=== PATIENT | male | born 2000 | race Caucasian/White ===

== ENCOUNTER 2020-08-06 14:46 | Inpatient (IN) | payer OTHER ==
[~2020-08-06] VITALS: Ht 180.3 cm; Wt 66.7 kg
[2020-08-06 15:49] LABS: HEMATOCRIT 48.4 % (42.0-52.0); HEMOGLOBIN 16.4 g/dl (13.5-17.5); MEAN CORPUSCULAR HEMOGLOBIN 29.8 pg (27.0-33.0); MEAN CORPUSCULAR HGB CONC 33.9 g/dl (32.0-36.5); PLATELET COUNT, AUTOMATED 276 10^3/uL (150-450); WHITE BLOOD COUNT 7.1 10^3/uL (4.0-10.0)
[2020-08-06 16:37] LABS: ALBUMIN 4.3 GM/DL (3.2-5.2); ALT/SGPT 140 U/L (12-78); BILIRUBIN,DIRECT 0.3 MG/DL (0.0-0.2); BILIRUBIN,TOTAL 1.4 MG/DL (0.2-1.0); BLOOD UREA NITROGEN 11 MG/DL (7-18); CALCIUM LEVEL 9.2 MG/DL (8.5-10.1); CARBON DIOXIDE LEVEL 30 MEQ/L (21-32); CHLORIDE LEVEL 104 MEQ/L (98-107); CREATININE FOR GFR 0.92 MG/DL (0.70-1.30); ETHYL ALCOHOL (ETHANOL) < 0.003 % (0.000-0.010); GLUCOSE, FASTING 91 MG/DL (70-100); POTASSIUM SERUM 4.1 MEQ/L (3.5-5.1); SODIUM LEVEL 139 MEQ/L (136-145); THYROID STIMULATING HORMONE 0.431 uIU/ML (0.463-3.98); TOTAL PROTEIN 7.3 GM/DL (6.4-8.2)
[2020-08-06 16:38] LABS: ACETAMINOPHEN LEVEL < 2.0 UG/ML (10.0-30.0); SALICYLATE LEVEL < 1.7 MG/DL (5.0-30.0)
[2020-08-06 17:39] LABS: AMPHETAMINES LEVEL URINE NEGATIVE (NEGATIVE); BARBITURATES URINE NEGATIVE (NEGATIVE); BENZODIAZEPINES URINE NEGATIVE (NEGATIVE); CANNABINOIDS URINE NEGATIVE (NEGATIVE); COCAINE METABOLITE URINE NEGATIVE (NEGATIVE); METHADONE URINE NEGATIVE (NEGATIVE); OPIATES URINE NEGATIVE (NEGATIVE); PHENCYCLIDINE URINE NEGATIVE (NEGATIVE)
[2020-08-06 18:34] LABS: HEPATITIS B SURFACE ANTIGEN NEGATIVE (NEGATIVE)
[2020-08-06] MEDS ORDERED: traZODone 50 MG TAB PO PRN (19:00)
[2020-08-06] MEDS ORDERED: MOM 30ML SUSPENSION UDC PO PRN (19:00)
[2020-08-06] MEDS ORDERED: MAALOX 30 ML SUSP *UDC PO PRN (19:00)
[2020-08-06] MEDS ORDERED: ACETAMINOPHEN TAB 650MG DOSE (2X325MG) PO PRN (19:00)
[2020-08-06 19:01] LABS: HEPATITIS B CORE ANTIBODY IGM NEGATIVE (NEGATIVE)
[2020-08-06 19:03] LABS: HEPATITIS A ANTIBODY IGM NEGATIVE (NEGATIVE)
[2020-08-06 23:49] VITALS: BP 127/73
[2020-08-07 06:49] VITALS: BP 111/66
--- NOTE | 2020-08-07 10:14 | MHHPEPDOC ---
[facility] History & Physical History and Physical DATE OF ADMISSION: Aug 06, 2020 at 18:56 HPI: Emmanuel presents today for an evaluation. The patient has met with today. 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 He reports he feels invalidated in his current role in the and became increasingly despondent and upset. Hes somewhat vague about symptoms but reports feeling stressed and feeling worse about being in the to the point where he has suicidal thoughts. He presented and was laney tted, screened for bipolar, psychotic, and PTSD symptoms at this time. MEDICAL HISTORY: Has no history of inpatient psych admissions, suicides, or diagnoses. FAMILY HISTORY: Denies any significant family history. SOCIAL HISTORY - LIVING SITUATION: Currently, lives in the [facility]. SOCIAL HISTORY - SUBSTANCE USE: Denies any substance abuse, tobacco, alcohol, marijuana. Objective Behavior: Pleasant. Poor eye contact. Engaged. Affect: Mildly dysthymic. Appropriate to context. Constricted. Thought Form: Linear and goal directed. Thought Content: No thoughts of self harm. No evidence of suicidal ideation. No evidence of delusions. No evidence of aggressive or homicidal ideation. Judgement: Poor. Insight: Poor. Assessment F43.20 Adjustment disorder, unspecified Plan Observe patient until appears in more of a state of adjustment related to the . Will recommend patient works on coping skills. Treatment priorities are 1) risk for suicide and 2) ineffective coping. Estimated length of stay is 2-5 days. Vital Signs Vital Signs Date Time Temp Pulse Resp B/P (MAP) Pulse Ox O2 Delivery O2 Flow Rate FiO2 08/07/20 06:49 98.4 89 14 111/66 (81) 96 Room Air Laboratory Data 24H Labs Laboratory Tests 2 08/06/20 15:39: Nucleated Red Blood Cells % (auto) 0.0, Anion Gap 5L, Calcium Level 9.2, Total Bilirubin 1.4H, Direct Bilirubin 0.3H, Aspartate Amino Transf (AST/SGOT) 161H, Alanine Aminotransferase (ALT/SGPT) 140H, Alkaline Phosphatase 62, Total Protein 7.3, Albumin 4.3, Albumin/Globulin Ratio 1.4, Thyroid Stimulating Hormone (TSH) 0.431L, Salicylates Level < 1.7L, Acetaminophen Level < 2.0L, Ethyl Alcohol Level < 0.003, Hepatitis A IgM Antibody NEGATIVE, Hepatitis B Surface Antigen NEGATIVE, Hepatitis B Core IgM Antibody NEGATIVE, Hepatitis C Antibody Index 0.0 08/06/20 16:50: Urine Opiates Screen NEGATIVE, Urine Methadone Screen NEGATIVE, Urine Barbiturates Screen NEGATIVE, Urine Phencyclidine Screen NEGATIVE, Urine Amphetamines Screen NEGATIVE, Urine Benzodiazepines Screen NEGATIVE, Urine Cocaine Metabolite Screen NEGATIVE, Urine Cannabinoids Screen NEGATIVE 08/06/20 19:29: Coronavirus (COVID-19)(PCR) NEGATIVE CBC/BMP Laboratory Tests 08/06/20 15:39 Medications No Active Prescriptions or Reported Meds Allergies Coded Allergies: No Known Allergies (Verified Allergy, Unknown, 08/06/20) PAPA CAVAZOS DO Aug 07, 2020 10:14
--- NOTE | 2020-08-07 15:50 | HPEPDOC ---
[facility] Medical History & Physical Date of Admission Aug 07, 2020 Date of Service: Aug 07, 2020 Attending Physician: NERY HANDLEY MD History and Physical CHIEF COMPLAINT: Suicidal ideation HISTORY OF PRESENT ILLNESS: Mr. Rivera is a pleasant 20-year-old male with no past medical history who was admitted to the behavioral health unit for suicidal ideation and possibly homicidal ideation. He experienced on the night of 08/06/2020. 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 He states he's been experiencing low mood, anxiety and suicidal ideation for the past 1-2 weeks. 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 He was afraid to be by himself out of fear of harming himself or somebody else. He does report taking Tylenol for headache, but states only took 2 tablets. At this time. He has no physical symptoms, he does not endorse chest pain, chest breath, palpitations, headache, nausea, vomiting, diarrhea or subjective chills. Hospitalist service was consulted for medical comanagement. Lab review. Noted transaminitis. AST 161, ALT 148. Alkaline phosphatase 62. Direct bilirubin 0.3, total bilirubin 1.4. Patient denies history of alcohol abuse. PAST MEDICAL HISTORY: Depression, anxiety, suspected PAST SURGICAL HISTORY: Patient denies any past surgical history SOCIAL HISTORY: Patient denies smoking Patient denies etoh use Patient denies illicit drug use Patient is active duty FAMILY HISTORY: Fatherhypertension. Motheranxiety and depression ALLERGIES: Please see below. REVIEW OF SYSTEMS: CONSTITUTIONAL: patient denies fevers, chills HEENT: patient denies blurred vision, loss of vision, headache,. CARDIOVASCULAR: patient denies chest pain, palpitations. RESPIRATORY: patient denies shortness of breath, cough, hemoptysis. GASTROINTESTINAL: patient denies abdominal pain, n/v/d, blood in stool. GENITOURINARY: patient denies dysuria, discharge. SKIN: patient denies rashes. MUSCULOSKELETAL: patient denies joint pain, neck pain. NEUROLOGICAL: patient denies focal weakness, numbness, seizures. PSYCHIATRIC: Patient reports SI, HI, however, does not have active suicidal thoughts at this time ENDOCRINE: patient denies polyuria, heat intolerance, cold intolerance. HEMATOLOGIC/LYMPHATIC: patient denies easy bruising. HOME MEDICATIONS: Please see below. PHYSICAL EXAMINATION: VITAL SIGNS: please see below General: NAD, comfortable HEENT: PERRLA, EOMI, sclerae clear Neck: supple, normal ROM, no JVD Respiratory: lungs CTAB, no wheeze, no rales, no crackles CVS: RRR, normal S1, S2, no murmurs Abdo: soft, no masses, no hepatosplenomegaly, BS+, no rebound tenderness Extremities: no edema, pulses 2+ MSK: no joint deformities, normal ROM Neuro: no focal neuro deficits, moving all 4 extremities, CN2-12 intact. Strength 5/5 in all 4 extremities. No nystagmus. Psych: calm, cooperative, AAO x 3 LABORATORY DATA: See below. MICROBIOLOGY: Please see below. ASSESSMENT: 20-year-old male in active duty admitted to [facility] for suicidal and homicidal ideation. Hospitalist service consulted for medical comanagement. . PLAN: Suicidal/homicidal ideation: Per psychiatry. Transaminitis/elevated bilirubin: Check hepatitis panel. Check lipid panel. Repeat CMP. Repeat bilirubin. Order liver ultrasound. Low TSH: Check free T4. Referring involving us in the care of this patient, please reconsult as needed. Vital Signs Vital Signs Date Time Temp Pulse Resp B/P (MAP) Pulse Ox O2 Delivery O2 Flow Rate FiO2 08/07/20 06:49 98.4 89 14 111/66 (81) 96 Room Air Laboratory Data Labs 24H Laboratory Tests 2 08/06/20 15:39: Nucleated Red Blood Cells % (auto) 0.0, Anion Gap 5L, Calcium Level 9.2, Total Bilirubin 1.4H, Direct Bilirubin 0.3H, Aspartate Amino Transf (AST/SGOT) 161H, Alanine Aminotransferase (ALT/SGPT) 140H, Alkaline Phosphatase 62, Total Protein 7.3, Albumin 4.3, Albumin/Globulin Ratio 1.4, Thyroid Stimulating Hormone (TSH) 0.431L, Salicylates Level < 1.7L, Acetaminophen Level < 2.0L, Ethyl Alcohol Level < 0.003, Hepatitis A IgM Antibody NEGATIVE, Hepatitis B Surface Antigen NEGATIVE, Hepatitis B Core IgM Antibody NEGATIVE, Hepatitis C Antibody Index 0.0 08/06/20 16:50: Urine Opiates Screen NEGATIVE, Urine Methadone Screen NEGATIVE, Urine Barbiturates Screen NEGATIVE, Urine Phencyclidine Screen NEGATIVE, Urine Amphetamines Screen NEGATIVE, Urine Benzodiazepines Screen NEGATIVE, Urine Cocaine Metabolite Screen NEGATIVE, Urine Cannabinoids Screen NEGATIVE 08/06/20 19:29: Coronavirus (COVID-19)(PCR) NEGATIVE CBC/BMP Laboratory Tests 08/06/20 15:39 Home Medications No Active Prescriptions or Reported Meds Allergies Coded Allergies: No Known Allergies (Verified Allergy, Unknown, 08/06/20) A-FIB/CHADSVASC A-FIB History Current/History of A-Fib/PAF?: No Current PO Anticoag Therapy: No NERY HANDLEY MD Aug 07, 2020 15:50
[2020-08-07 16:09] VITALS: BP 118/62
[2020-08-07 16:38] LABS: BASO # 0.1 10^3/uL (0.0-0.2); BASO % 0.9 % (0.0-1.0); EOS # 0.5 10^3/uL (0.0-0.5); EOS % 6.1 % (0.0-3.0); HEMATOCRIT 50.9 % (42.0-52.0); HEMOGLOBIN 17.2 g/dl (13.5-17.5); LYMPH # 2.1 10^3/uL (1.5-5.0); LYMPH % 27.3 % (24.0-44.0); MEAN CORPUSCULAR HGB CONC 33.8 g/dl (32.0-36.5); MEAN CORPUSCULAR VOLUME 88.7 fl (80.0-96.0); MONO # 0.6 10^3/uL (0.0-0.8); MONO % 7.9 % (0.0-5.0); NEUTROPHILS # 4.4 10^3/uL (1.5-8.5); NEUTROPHILS % 57.4 % (36.0-66.0); PLATELET COUNT, AUTOMATED 287 10^3/uL (150-450); RED BLOOD COUNT 5.74 10^6/uL (4.30-6.10); WHITE BLOOD COUNT 7.6 10^3/uL (4.0-10.0)
[2020-08-07 17:14] LABS: ALBUMIN 4.4 GM/DL (3.2-5.2); ALT/SGPT 124 U/L (12-78); BILIRUBIN,TOTAL 0.9 MG/DL (0.2-1.0); BLOOD UREA NITROGEN 12 MG/DL (7-18); CALCIUM LEVEL 9.4 MG/DL (8.5-10.1); CARBON DIOXIDE LEVEL 31 MEQ/L (21-32); CHLORIDE LEVEL 104 MEQ/L (98-107); CHOLESTEROL LEVEL 151 MG/DL (<200); CHOLESTEROL RISK RATIO 4.081 (<5); CREATININE FOR GFR 0.85 MG/DL (0.70-1.30); FREE T4 1.18 NG/DL (0.78-1.33); GLUCOSE, FASTING 87 MG/DL (70-100); HDL CHOLESTEROL 37 MG/DL (>40); LDL CHOLESTEROL 82 MG/DL (<100); NON-HDL-C 114 MG/DL; POTASSIUM SERUM 4.3 MEQ/L (3.5-5.1); SODIUM LEVEL 142 MEQ/L (136-145); TOTAL PROTEIN 7.5 GM/DL (6.4-8.2); TRIGLYCERIDES LEVEL 162 MG/DL (<150)
[2020-08-07 18:01] LABS: HEPATITIS B CORE ANTIBODY IGM NEGATIVE (NEGATIVE)
[2020-08-07 18:02] LABS: HEPATITIS A ANTIBODY IGM NEGATIVE (NEGATIVE)
--- NOTE | 2020-08-07 20:04 | REP ---
INDICATION: elevated liver enzymes. FINDINGS: Multiple ultrasonographic images of the liver show the hepatic parenchymal echo texture to appear unremarkable. There are no focal masses. There is no intrahepatic ductal dilatation. The common bile duct measures approximately 3.2 mm in its greatest transverse dimension. Multiple ultrasonographic images of the gallbladder show no focal or diffuse gallbladder wall thickening. The gallbladder, however, is contracted. There are no echogenic foci within the gallbladder lumen, which casts acoustic shadows. There is no pericholecystic edema. Images of the pancreatic region show no gross abnormality. The imaged portion of the right kidney is unremarkable. IMPRESSION: Unremarkable right upper quadrant ultrasound. Accredited by the [employer] in General Ultrasound. <Electronically signed by Asael Miranda > 08/07/202000
[2020-08-07 20:57] LABS: HEPATITIS B SURFACE ANTIGEN NEGATIVE (NEGATIVE)
[2020-08-08 06:29] VITALS: BP 125/54
--- NOTE | 2020-08-08 15:28 | MHIPNPDOC ---
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 Pt describesthe SI and "sitting there thinking and they creep in" when having these thoughts. Pt states there have been times he will walk to the window and stareout, has even opened the window before but stopped due to his relationship with his mother. He also endorsed a plan of "disappearing in the rosales" he reports there are a lot of rosales around him and he would go into there "and never come out" Pt then goes on to describe where in the neck area would be best to "stab" himself. Pt reports that he lost 2 of his brothers in childhood via MVC and seems pretty flat when describing the tragic details of these events. Pt states that he has no Hx of these types of thoughts but they have been "pretty intense" this past week. Denies HI and AH/VH" VITAL SIGNS: See below. NEW TEST RESULTS: See below CURRENT MEDICATIONS: See below. MENTAL STATUS EXAMINATION: Patient is a 20 year old male, who is alert, cooperative, dressed in hospital clothes . Speech: Is normal in r/t/v, spontaneous and fluent Language skills are intact. Thought processes including: linear an coherent. Thought content: he has depressed thoughts, anxious thoughts, has angry thoughts, denies SI/HI at this time but he had them when he was at [employer]. Abstract reasoning, and computation: good. Description of associations: good, not loose Description of abnormal or psychotic thoughts: denies TAV hallucinations, denies thought delusions, denies SI/HI. Judgment: Improving Insight: Fair Orientation: x 3. Recent and remote memory: intact. Attention span and concentration: he is able to focus. Language: no abnormalities observed. Fund of knowledge: average Mood: sad/depressed. Affect: congruent with mood, sad. DIAGNOSES: 1. Adjustment disorder, unspecified 2. R/O Unspecified trauma and stressor disorder 3. R/O Generalized Anxiety Disorder. ASSESSMENT: The patient feels guilty because he was not with his brother when this one in a MVA 2 years ago. h has survivor's guilt. He feels guilty because he could do nothing to help his family mitigate the pain when he lost his 15 year old brother who got run over by his mother as she was backing up from the [facility]. He was 5 years old at the time. He has nightmares about those traumatic events and he can't remember a lot of things that he shared with is brother ( who in the MVA). He should continue therapy once he is discharged to work on these problems. MANAGEMENT PLAN: As pr Dr. Hernandez TIME SPENT: 20minutes. Vital Signs Vital Signs Date Time Temp Pulse Resp B/P (MAP) Pulse Ox O2 Delivery O2 Flow Rate FiO2 08/08/20 06:29 97.8 70 18 125/54 (77) 96 Room Air Laboratory Data 24H Labs Laboratory Tests 2 08/07/20 16:05: Immature Granulocyte % (Auto) 0.4, Neutrophils (%) (Auto) 57.4, Lymphocytes (%) (Auto) 27.3, Monocytes (%) (Auto) 7.9H, Eosinophils (%) (Auto) 6.1H, Basophils (%) (Auto) 0.9, Neutrophils # (Auto) 4.4, Lymphocytes # (Auto) 2.1, Monocytes # (Auto) 0.6, Eosinophils # (Auto) 0.5, Basophils # (Auto) 0.1, Nucleated Red Blood Cells % (auto) 0.0, Anion Gap 7L, Calcium Level 9.4, Total Bilirubin 0.9, Aspartate Amino Transf (AST/SGOT) 92H, Alanine Aminotransferase (ALT/SGPT) 124H, Alkaline Phosphatase 76, Total Protein 7.5, Albumin 4.4, Albumin/Globulin Ratio 1.4, Triglycerides Level 162H, Total Cholesterol 151, LDL Cholesterol 82, Non- HDL Cholesterol (LDL + VLDL) 114, Total HDL Cholesterol 37L, Cholesterol/HDL Ratio 4.081, Free Thyroxine 1.18, Hepatitis A IgM Antibody NEGATIVE, Hepatitis B Surface Antigen NEGATIVE, Hepatitis B Core IgM Antibody NEGATIVE CBC/BMP Laboratory Tests 08/07/20 16:05 Current Medications Current Medications Medications (Trade) Dose Ordered Sig/Rojas Route PRN Reason Start Time Stop Time Status Last Admin Dose Admin Acetaminophen (Tylenol Tab) 650 mg Q6HP PRN PO HEADACHE or DISCOMFORT 08/06/20 19:00 11/13/20 01:34 Al Hydrox/Mg Hydrox/Simethicone (Mylanta) 30 ml Q4HP PRN PO HEARTBURN/INDIGESTION 08/06/20 19:00 Home Med (Med Rec Complete!) ASDIRECTED XX 08/06/20 19:00 08/06/20 18:55 DC Magnesium Hydroxide (Milk Of Magnesia) 30 ml DAILYPRN PRN PO CONSTIPATION 08/06/20 19:00 Trazodone HCl (Desyrel) 50 mg QHSP PRN PO INSOMNIA 08/06/20 19:00 Allergies Coded Allergies: No Known Allergies (Verified Allergy, Unknown, 08/06/20) RYAN GODFREY MD Aug 08, 2020 15:17
[2020-08-08 16:22] VITALS: BP 114/60
[2020-08-09 06:09] VITALS: BP 118/57
--- NOTE | 2020-08-09 12:54 | MHIPNPDOC ---
[facility] Progress Note Progress Note DATE OF SERVICE: 08/09/20 HISTORY: As per ED report: "Pt states "I have thoughts of hurting myself and I don't trust myself to be alone" Pt reports many times throughout the interview that he does not like the way his squad treats him and this causes much of his thoughts and feelings. Pt describesthe SI and "sitting there thinking and they creep in" when having these thoughts. Pt states there have been times he will walk to the window and stareout, has even opened the window before but stopped due to his relationship with his mother. He also endorsed a plan of "disappearing in the rosales" he reports there are a lot of rosales around him and he would go into there "and never come out" Pt then goes on to describe where in the neck area would be best to "stab" himself. Pt reports that he lost 2 of his brothers in childhood via MVC and seems pretty flat when describing the tragic details of these events. Pt states that he has no Hx of these types of thoughts but they have been "pretty intense" this past week. Denies HI and AH/VH" VITAL SIGNS: See below. NEW TEST RESULTS: See below CURRENT MEDICATIONS: See below. MENTAL STATUS EXAMINATION: Patient is a 20 year old male, who is alert, cooperative, dressed in hospital clothes . Speech: Is normal in r/t/v, spontaneous and fluent Language skills are intact. Thought processes including: linear an coherent. Thought content: he has sad thoughts regarding his brother's , very little anxious thoughts today. He denies SI/HI at this time but he had them when he was at . Abstract reasoning, and computation: good. Description of associations: good, not loose Description of abnormal or psychotic thoughts: denies TAV hallucinations, denies thought delusions, denies SI/HI. Judgment: Improving Insight: Fair Orientation: x 3. Recent and remote memory: intact. Attention span and concentration: he is able to focus. Language: no abnormalities observed. Fund of knowledge: average Mood: " if eel OK today". Affect: congruent with mood, sad. DIAGNOSES: 1. Adjustment disorder, unspecified 2. R/O Unspecified trauma and stressor disorder 3. R/O Generalized Anxiety Disorder. ASSESSMENT: He says his depression is a 2/10, he says he doesn't feel sad. he says he has not felt anxious lately. MANAGEMENT PLAN: As pr Dr. Hernandez TIME SPENT: 20minutes. Vital Signs Vital Signs Date Time Temp Pulse Resp B/P (MAP) Pulse Ox O2 Delivery O2 Flow Rate FiO2 08/09/20 06:09 98.3 56 18 118/57 (77) 97 Room Air Current Medications Current Medications Medications (Trade) Dose Ordered Sig/Rojas Route PRN Reason Start Time Stop Time Status Last Admin Dose Admin Acetaminophen (Tylenol Tab) 650 mg Q6HP PRN PO HEADACHE or DISCOMFORT 08/06/20 19:00 08/07/20 01:34 Al Hydrox/Mg Hydrox/Simethicone (Mylanta) 30 ml Q4HP PRN PO HEARTBURN/INDIGESTION 08/06/20 19:00 Home Med (Med Rec Complete!) ASDIRECTED XX 08/06/20 19:00 08/06/20 18:55 DC Magnesium Hydroxide (Milk Of Magnesia) 30 ml DAILYPRN PRN PO CONSTIPATION 08/06/20 19:00 Trazodone HCl (Desyrel) 50 mg QHSP PRN PO INSOMNIA 08/06/20 19:00 Allergies Coded Allergies: No Known Allergies (Verified Allergy, Unknown, 08/06/20) RYAN GODFREY MD Aug 09, 2020 12:54
[2020-08-09 16:25] VITALS: BP 130/73
[2020-08-10 06:28] VITALS: BP 107/53
--- NOTE | 2020-08-10 11:10 | MHIPNPDOC ---
[facility] Progress Note Progress Note DATE OF SERVICE: 08/10/20 HISTORY: . VITAL SIGNS: See below. NEW TEST RESULTS: . CURRENT MEDICATIONS: See below. MENTAL STATUS EXAMINATION: Patient is a -year old male, who is . Speech: Is . Language skills are . Thought processes including: . Thought content: . Abstract reasoning, and computation: . Description of assoc iations: . Description of abnormal or psychotic thoughts: . Judgment: . Insight: [very limited, good, fair. poor]. Orientation: . Recent and remote memory: . Attention span and concentration: . Language: . Fund of knowledge: . Mood: . Affect: . DIAGNOSES: 1. . 2. . 3. . ASSESSMENT: MANAGEMENT PLAN: . TIME SPENT: minutes. Vital Signs Vital Signs Date Time Temp Pulse Resp B/P (MAP) Pulse Ox O2 Delivery O2 Flow Rate FiO2 08/10/20 06:28 98.5 83 12 107/53 (71) Room Air 08/09/20 06:09 97 Current Medications Current Medications Medications (Trade) Dose Ordered Sig/Rojas Route PRN Reason Start Time Stop Time Status Last Admin Dose Admin Acetaminophen (Tylenol Tab) 650 mg Q6HP PRN PO HEADACHE or DISCOMFORT 08/06/20 19:00 08/07/20 01:34 Al Hydrox/Mg Hydrox/Simethicone (Mylanta) 30 ml Q4HP PRN PO HEARTBURN/INDIGESTION 08/06/20 19:00 Home Med (Med Rec Complete!) ASDIRECTED XX 08/06/20 19:00 08/06/20 18:55 DC Magnesium Hydroxide (Milk Of Magnesia) 30 ml DAILYPRN PRN PO CONSTIPATION 08/06/20 19:00 Trazodone HCl (Desyrel) 50 mg QHSP PRN PO INSOMNIA 08/06/20 19:00 Allergies Coded Allergies: No Known Allergies (Verified Allergy, Unknown, 08/06/20) PAPA CAVAZOS DO Aug 10, 2020 11:10
--- NOTE | 2020-08-10 11:32 | MHDSPDOC ---
[facility] Discharge Summary Discharge Summary DATE OF ADMISSION: Aug 06, 2020 at 18:56 DATE OF DISCHARGE: DISCHARGE DIAGNOSES: 1. . 2. . REASON FOR ADMISSION: CONSULTANTS INVOLVED: TREATMENT AND PROGRESS ON THE UNIT : . HOSPITAL COURSE: DISCHARGE ASSESSMENT: MENTAL STATUS EXAMINATION ON DISCHARGE: Patient is a -year old male, who is . Speech is . Language skills are . Thought processes including: . Thought content: . Abstract reasoning, and computation: . Description of associations: . Description of abnormal or psychotic thoughts: . Judgment: . Insight: . Orientation to . Recent and remote memory: . Attention span and concentration: . Language: . Fund of knowledge: . Mood: . Affect: . MEDICATIONS ON DISCHARGE: - for . - for . - for . PLAN/FOLLOWUP ARRANGEMENTS: . The amount of time spent in the coordination of care for this patient was approximately minutes. Vital Signs/I&Os Vital Signs Date Time Temp Pulse Resp B/P (MAP) Pulse Ox O2 Delivery O2 Flow Rate FiO2 08/10/20 06:28 98.5 83 12 107/53 (71) Room Air 08/09/20 06:09 97 Medications No Active Prescriptions or Reported Meds Allergies Coded Allergies: No Known Allergies (Verified Allergy, Unknown, 08/06/20) PAPA CAVAZOS DO Aug 10, 2020 11:32
== END 2020-08-10 14:11 | disposition home or self-care (01) | DRG 882 ==
LOC: M ED 14:46 → M ED INP 18:56 → M PSY 23:36
PROVIDERS: ADMIT Psychiatry & Neurology Addiction Medicine; ATTEND Psychiatry & Neurology Addiction Medicine
DX: F43.20 Adjustment disorder, unspecified (principal); F41.9 Anxiety disorder, unspecified